=== PATIENT | female | born 1955 | race Caucasian/White ===

== ENCOUNTER 2017-03-07 22:10 | Emergency (ER) | payer OTHER ==
[2017-03-08] MEDS ORDERED: HYDROmorphone 0.5 MG/0.5 ML Syringe IVPUSH ONE (01:58)
[2017-03-08] MEDS ORDERED: Ondansetron 4 MG/2 ML SDV IVPUSH ONE (01:58)
[2017-03-08] MEDS ORDERED: Sodium Chloride 0.9% 1,000 ML IV SCH (02:00)
--- NOTE | 2017-03-08 02:00 | EDM.PDOC ---
[id number] Complaint: ILLNESS Time Seen by Provider: 03/08/17 01:45 Source of Information: Reports: Patient, Family History Limitations: Reports: No Limitations - History of Present Illness INITIAL COMMENTS - FREE TEXT/NARRATIVE: 62-year-old female with a fairly sudden onset of diarrhea followed by nausea and vomiting 5 hours ago. After vomiting for 3 straight hours she came to the emergency room, it seems to have slowed down now since there was an extended wait to be seen. She is also running a low-grade fever but did not have any cough, shortness of breath, chest pain, or urinary tract symptoms. Onset: Sudden Severity: Moderate Associated Symptoms: Reports: Fever/Chills, Nausea/Vomiting. Denies: Chest Pain , Shortness of Breath, Weakness Headache Pain Score (Numeric/FACES): 5 - Related Data Allergies Allergy/AdvReac Type Severity Reaction Status Date / Time No Known Allergies Allergy Verified 03/08/17 01:36 Past Medical History [employer] History: Reports: Social & Family History - Family History Family Medical History: Noncontributory - Tobacco Use Smoking Status *Q: Never Smoker Second Hand Smoke Exposure: No - Caffeine Use Caffeine Use: Reports: Coffee, Soda, Tea - Alcohol Use Number of Drinks Per Day: 1 - Recreational Drug Use Recreational Drug Use: No ED ROS GENERAL - Review of Systems Review Of Systems: See Below Constitutional: Reports: Fever, Chills, Malaise, Weakness Cardiovascular: Reports: No Symptoms (Cramping) GI/Abdominal: Reports: Abdominal Pain, Nausea, Vomiting : Reports: No Symptoms Musculoskeletal: Reports: No Symptoms Skin: Reports: No Symptoms Neurological: Reports: Dizziness ED EXAM, GI/ABD - Physical Exam Exam: See Below Exam Limited By: No Limitations General Appearance: Alert, No Apparent Distress Eyes: Bilateral: Normal Appearance Respiratory/Chest: No Respiratory Distress, Lungs Clear Cardiovascular: Regular Rate, Rhythm GI/Abdominal Exam: Soft, Other (Patient has some tenderness to palpation along the right upper quadrant and across the top of the abdomen) Extremities: Normal Inspection Neurological: Alert, Oriented Psychiatric: Normal Affect, Normal Mood Skin Exam: Warm, Dry Course - Vital Signs Last Recorded V/S: Last Vital Signs Temp 99.8 F 03/08/17 03:27 Pulse 88 03/08/17 03:27 Resp 16 03/08/17 03:27 BP 116/63 03/08/17 03:27 Pulse Ox 92 L 03/08/17 03:27 - Orders/Labs/Meds Labs: Laboratory Tests 03/08/17 03/08/17 Range/Units 02:08 02:08 WBC 8.1 (4.5-11.0) K/uL RBC 4.58 (3.30-5.50) M/uL Hgb 13.4 (12.0-15.0) g/dL Hct 39.8 (36.0-48.0) % MCV 87 (80-98) fL MCH 29 (27-31) pg MCHC 34 (32-36) % Plt Count 230 (150-400) K/uL Neut % (Auto) 92 H (36-66) % Lymph % (Auto) 4 L (24-44) % Love % (Auto) 4 (2-6) % Eos % (Auto) 0 L (2-4) % Baso % (Auto) 0 (0-1) % Sodium 143 (140-148) mmol/L Potassium 4.1 (3.6-5.2) mmol/L Chloride 107 (100-108) mmol/L Carbon Dioxide 27 (21-32) mmol/L Anion Gap 8.8 (5.0-14.0) mmol/L BUN 21 H (7-18) mg/dL Creatinine 1.0 (0.6-1.0) mg/dL Est Cr Clr Drug Dosing 42.96 mL/min Estimated GFR (MDRD) 56 L (>60) Glucose 126 H (74-106) mg/dL Calcium 8.4 L (8.5-10.1) mg/dL Total Bilirubin 0.8 (0.2-1.0) mg/dL AST 25 (15-37) U/L ALT 29 (12-78) U/L Alkaline Phosphatase 120 H (46-116) U/L Total Protein 7.7 (6.4-8.2) g/dL Albumin 3.5 (3.4-5.0) g/dL Globulin 4.2 H (2.3-3.5) g/dL Albumin/Globulin Ratio 0.8 L (1.2-2.2) Amylase 47 (25-115) U/L Lipase 98 (73-393) U/L Meds: Medications Discontinued Medications Generic Name Dose Route Start Last Admin Trade Name Radha PRN Reason Stop Dose Admin Hydromorphone HCl 0.5 mg 03/08/17 01:58 03/08/17 02:37 Dilaudid IVPUSH 03/08/17 01:59 0.5 mg ONETIME ONE Administration Sodium Chloride 1,000 mls @ 1,000 mls/hr 03/08/17 02:00 03/08/17 02:29 Normal Saline IV 1,000 mls/hr ASDIRECTED RAS Administration Ondansetron HCl 4 mg 03/08/17 01:58 03/08/17 02:35 Zofran IVPUSH 03/08/17 01:59 4 mg ONETIME ONE Administration - Re-Assessments/Exams Free Text/Narrative Re-Assessment/Exam: 03/08/17 02:58 Patient was given a liter of normal saline, 0.5 mg of Dilaudid and 4 mg of Zofran IV. She continued to improve. Her labs returned reassuring with a normal white count and hemoglobin, negative amylase and lipase. Departure - Departure Time of Disposition: 03:41 Disposition: Home, Self-Care 01 Condition: Good Clinical Impression: Viral gastroenteritis - Discharge Information Instructions: Viral Gastroenteritis, Adult, [id number] Referrals: PCP,None [Primary Care Provider] - Forms: ED Department Discharge Care Plan Goals: Advance diet and activity slowly and as tolerated. Concentrating on fluids. Return anytime if worsening or concerns.
[2017-03-08 03:29] VITALS: BP 116/63
== END 2017-03-08 03:32 | disposition home or self-care (01) ==
LOC: JP.ED 22:10
DX: A08.4 Viral intestinal infection, unspecified (principal)
CPT/HCPCS: 36415; 80053; 82150; 83690; 85025; 96361; 96374; 96375; 99284; J1170; J2405; J7040